=== PATIENT | female | born 1940 | race Two or more races ===

== ENCOUNTER 2022-07-22 12:21 | Emergency (ER) | payer MEDICARE, MEDICAID ==
[~2022-07-22] VITALS: Ht 170.2 cm; Wt 71.8 kg
[2022-07-22] MEDS ORDERED: PANTOPRAZOLE 40 MG/10 ML VIAL INJ IV ONE (13:00)
[2022-07-22 13:12] LABS: Basophils # (auto) 0.1 10 ^3/uL (0-0.2); Basophils % (auto) 1.5 % (0.0-2.0); Eosinophils # (auto) 0.1 10 ^3/uL (0-0.8); Eosinophils % (auto) 2.3 % (0.0-7.0); Hematocrit 39.6 % (36.0-46.0); Lymphocytes # (auto) 1.6 10 ^3/uL (0.4-5.4); Lymphocytes % (auto) 27.9 % (10.0-50.0); Mean Corpuscular Hemoglobin 29.9 pg (28.0-32.0); Mean Corpuscular Hgb Conc. 32.8 g/dL (32.0-36.0); Mean Corpuscular Volume 91.2 fL (80.0-100.0); Monocytes # (auto) 0.7 10 ^3/uL (0-1.3); Monocytes % (auto) 11.6 % (0.0-12.0); Neutrophils # (auto) 3.3 10 ^3/uL (1.6-8.6); Neutrophils % (auto) 56.7 % (37.0-80.0); Nucleated Red Blood Cells % 0.1 %; Red Blood Cells 4.34 10^6/uL (4.0-5.20); Red Cell Distribution Width 14.1 % (11.8-14.3); White Blood Cell 5.8 10^3/uL (4.4-10.8)
[2022-07-22 13:45] LABS: Albumin 3.5 g/dL (3.4-5.0); Potassium 3.3 mmol/L (3.5-5.1)
[2022-07-22 13:50] LABS: BUN/Creatinine Ratio 10.3 (10.0-20.0); Total Protein 7.4 g/dL (6.4-8.2)
[2022-07-22] MEDS ORDERED: IOHEXOL 350 MG/ML 100ML IJ ONE (13:56)
[2022-07-22 14:10] LABS: Partial Thromboplastin Time 28.8 sec (24.6-33.4)
[2022-07-22 15:18] VITALS: BP 129/59
[2022-07-22] MEDS ORDERED: CIPR-173 PO (15:20)
[2022-07-22] MEDS ORDERED: PANT40TA2 PO (15:20)
== END 2022-07-22 16:15 | disposition home or self-care (01) ==
LOC: ER 12:21
DX: K29.00 Acute gastritis without bleeding (principal); K52.9 Noninfective gastroenteritis and colitis, unspecified; E11.9 Type 2 diabetes mellitus without complications; E78.5 Hyperlipidemia, unspecified; I10 Essential (primary) hypertension; Z90.710 Acquired absence of both cervix and uterus
CPT/HCPCS: 36415; 74177; 80053; 83690; 85025; 85610; 85730; 96374; 99285; C9113; Q9967